=== PATIENT | female | born 1985 | race Caucasian/White ===

== ENCOUNTER 2019-11-04 05:36 | Observation (INO) | payer OTHER ==
[2019-10-30 09:18] LABS: BASOPHILS # (AUTO) 0.1 (0.0-0.1); BASOPHILS % 0.7 % (0.0-1.0); EOSINOPHILS # (AUTO) 0.2 (0.0-0.4); EOSINOPHILS % 1.6 % (0.0-6.0); HEMATOCRIT 38.2 % (34.2-44.1); LYMPHOCYTES # (AUTO) 2.7 (1.0-3.2); LYMPHOCYTES % 26.2 % (18.0-39.1); MEAN CORPUSCULAR HEMOGLOBIN 29.7 pg (28-32); MEAN CORPUSCULAR HGB CONC 31.4 g/dL (31-35); MEAN CORPUSCULAR VOLUME 94.6 fL (81-99); MONOCYTES # (AUTO) 0.6 (0.2-0.8); MONOCYTES % 6.2 % (4.4-11.3); NEUTROPHILS # (AUTO) 6.6 (2.1-6.9); NEUTROPHILS % 64.8 % (38.7-80.0); PLATELET COUNT 273 x10e3/uL (140-360); RED BLOOD COUNT 4.04 x10e6/uL (3.6-5.1); RED CELL DISTRIBUTION WIDTH 12.5 % (11.7-14.4)
[2019-10-30 09:28] LABS: PARTIAL THROMBOPLASTIN TIME 24.7 seconds (23.8-35.5)
[2019-10-30 09:32] LABS: CALCIUM 9.2 mg/dL (8.4-10.2); CREATININE, SERUM 1.34 mg/dL (0.57-1.11)
[2019-10-30 09:34] LABS: INR 0.83; PROTHROMBIN TIME 11.9 seconds (11.9-14.5)
--- NOTE | 2019-10-30 09:39 | Diagnostic Imaging Report ---
EXAMINATION: PA and lateral views of the chest. COMPARISON: None CLINICAL HISTORY: Preadmit DISCUSSION: Lines/tubes: None. Lungs: The lungs are well inflated and clear. There is no evidence of pneumonia or pulmonary edema. Pleura: There is no pleural effusion or pneumothorax. Heart and mediastinum: Cardiomediastinal silhouette is unremarkable. Pulmonary vasculature is normal. Bones and soft tissues: No acute bony abnormalities. IMPRESSION: No acute cardiopulmonary abnormalities. Signed by: Dr. Mian Machuca M.D. on 10/30/2019 9:35 AM
[~2019-11-04] VITALS: Ht 170.2 cm; Wt 83.5 kg
[~2019-11-04 05:36] MED LIST: IBUPROFEN200 MG PO
[2019-11-04] MEDS ORDERED: THROMBIN FOR SOLN 5,000 UNIT VIAL ONE (06:24)
[2019-11-04] MEDS ORDERED: BACITRACIN 50,000 UNIT VIAL ONE (06:24)
[2019-11-04] MEDS ORDERED: BUPIVACAINE 0.5%/EPI 30 ML SDV INJ ONE (06:24)
[2019-11-04] MEDS ORDERED: CEFAZOLIN SOD 1 GM/NS 50ML 100 ML IV ONE (06:25)
[2019-11-04] MEDS ORDERED: IBUPROFEN 800MG/ 200ML 200 ML IV ONE (07:38)
[2019-11-04] MEDS ORDERED: LIDOCAINE HCL (LTA) 4 ML SOLN ONE (07:38)
[2019-11-04] MEDS ORDERED: ACETAMINOPHEN 1000 MG/100 ML 100 ML IV ONE (07:38)
[2019-11-04] MEDS ORDERED: PROPOFOL IV EMULSION 10 MG/ML 20 ML VIAL ONE ×2 (08:19→15:40)
[2019-11-04] MEDS ORDERED: SUGAMMADEX SODIUM 200 MG/2 ML VIAL IV ONE (08:45)
[2019-11-04] MEDS ORDERED: CARISOPRODOL 350 MG TAB PO PRN (09:30)
[2019-11-04] MEDS ORDERED: MORPHINE SULFATE INJ 4 MG/ML INJ 1ML IM PRN (09:30)
[2019-11-04] MEDS ORDERED: CEPACOL SORE THROAT LOZENGES PO PRN (09:30)
[2019-11-04] MEDS ORDERED: MAGNESIUM/ALUMINUM/SIMETHICONE 30 ML UDC PO PRN (09:30)
[2019-11-04] MEDS ORDERED: ACETAMINOPHEN 325 MG TAB PO PRN (09:30)
[2019-11-04] MEDS ORDERED: PROMETHAZINE HCL (IM) 25 MG/ML VIAL IM PRN (09:30)
[2019-11-04] MEDS ORDERED: ONDANSETRON HCL INJ 2MG/ML 2ML 2 MG/ML VIAL IV PRN (09:30)
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
--- NOTE | 2019-11-04 10:15 | NUR ---
Pt received from PACU at this time. Pt is aox3 and able to verbalize needs. Complains of pain to lower back at site of surgery. Pt is able to ambulate without difficulties. Pt continues in IV fluids and tolerates well.
[2019-11-04 10:34] VITALS: BP 127/92
[2019-11-04] MEDS: HYDROMORPHONE 2MG/ML 2 MG/ML ML IV PRN ×2 (10:46→14:47)
[2019-11-04 10:55] VITALS: BP 127/92
[2019-11-04 11:41] VITALS: BP 127/92
[2019-11-04] MEDS: LACTATED RINGER'S 1,000 ML IV SCH ×2 (11:49→19:05)
--- NOTE | 2019-11-04 12:04 | Operative Report ---
DATE OF PROCEDURE: 11/04/2019 SURGEON: Ubaldo Sterling MD PREOPERATIVE DIAGNOSIS: Left L5-S1 disk herniation with radiculopathy, M51.17. POSTOPERATIVE DIAGNOSIS: Left L5-S1 disk herniation with radiculopathy, M51.17. PROCEDURE: Left L5-S1 laminotomy, medial facetectomy, and microsurgical diskectomy, 13626. ANESTHESIA: General. INDICATIONS: The patient is a 34-year-old woman who presents with an intractable left S1 radiculopathy due to an L5-S1 disk herniation and was taken to surgery for microsurgical diskectomy. PROCEDURE IN DETAIL: After induction of general anesthesia, the patient was placed on the operating table in prone position over Lucio frame. Lumbar region was prepped and draped in sterile fashion. A preoperative x-ray was obtained and a small midline incision was created. Lumbar fascia was opened to the left of midline and subperiosteal dissection was carried out to expose the underlying lamina. Additional x-rays were obtained until correct localization was confirmed at L5-S1. Retraction was maintained with Luis retractor. The operating microscope was brought in. A high-speed drill equipped with a man bur was used to drill the inferior aspect of the lamina of L5 and the medial rim of the L5-S1 facet joint and superior rim of the lamina of S1. The ligamentum flavum was resected. The lateral margin of the dural sac and the S1 nerve root were exposed. The nerve root was mobilized and carefully retracted medially. The epidural veins were bipolar coagulated and divided with micro scissors. The herniated disk material came into view. As expected, this was a combination of a chronic disk herniation at the level of the disk space and a more acute disk herniation just inferior to the disk space. The acute component of the disk herniation was retrieved and removed with a micro ball probe. The chronic subligamentous disk herniation was carefully resected with a combination of reverse angled curettes and up-angled pituitaries until the nerve root was completely decompressed. The loose contents of L5-S1 disk were evacuated with a micropituitary. Meticulous hemostasis was secured. The lumbar fascia was closed with 0 Vicryl suture. Subcutaneous layer was closed with 2-0 Vicryl sutures. The skin was closed with 3-0 Monocryl sutures in subcuticular fashion. Steri-Strips and dressing were applied. The patient was awakened, extubated, and taken to postanesthesia care unit in stable condition. No intraoperative complications were encountered. ESTIMATED BLOOD LOSS: 10 mL. Ubaldo Sterling MD PP/MEGA /[id number]
[2019-11-04] MEDS: CEFAZOLIN SOD 1 GM/NS 50ML 50 ML IV SCH ×2 (14:13→22:31)
[2019-11-04] MEDS ORDERED: DEXAMETHASONE SOD PHOS INJ 4 MG/ML VIAL ONE (15:40)
[2019-11-04] MEDS ORDERED: LIDOCAINE HCL 2% JELLY 5 ML TUBE ONE (15:40)
[2019-11-04] MEDS ORDERED: GLYCOPYRROLATE INJ 0.2 MG/ML VIAL ONE (15:40)
[2019-11-04] MEDS ORDERED: LIDOCAINE HCL 2% LOCAL INJ 5 ML SDV VIAL INJ ONE (15:40)
[2019-11-04] MEDS ORDERED: NEOSTIGMINE 1 MG/ML 10ML VIAL ONE (15:40)
[2019-11-04] MEDS ORDERED: ONDANSETRON HCL INJ 2MG/ML 2ML 2 MG/ML VIAL ONE (15:40)
[2019-11-04] MEDS ORDERED: ROCURONIUM BROMIDE 10 MG/ML 5ML VIAL IV ONE (15:40)
[2019-11-04 16:16] VITALS: BP 105/75
[2019-11-04] MEDS: OXYCODONE/ACETAMINOPHEN 5-325 1 EACH TABLET PO PRN (18:28)
[2019-11-04 20:00] VITALS: BP 99/63
[2019-11-04] MEDS ORDERED: ZOLPIDEM TARTRATE 5 MG TAB PO PRN (21:00)
[2019-11-04 21:58] VITALS: BP 99/63
[2019-11-05] VITALS: BP 107/71
[2019-11-05] MEDS: OXYCODONE/ACETAMINOPHEN 5-325 1 EACH TABLET PO PRN (00:36)
[2019-11-05 04:00] VITALS: BP 109/65
[2019-11-05] MEDS: CEFAZOLIN SOD 1 GM/NS 50ML 50 ML IV SCH (06:00)
[2019-11-05 08:00] VITALS: BP_SYST 113; BP_SYST 118; BP_DIAS 73; BP_DIAS 80
[2019-11-05] MEDS ORDERED: NORCO 7.5-3251 EACH PO (09:38)
--- NOTE | 2019-11-05 10:54 | NUR ---
Pt discharged home at this time. 0 s/s of acute distress noted at time of discharge. Pt was discharged with one prescription for pain medications. Dressing to lower back was dry and intact. Pt verbalized understanding of all discharge instructions and follow up appointments.
== END 2019-11-05 10:54 | disposition home or self-care (01) ==
LOC: OR 05:36 → PACU V 09:29 → MED/SURG 10:12
PROVIDERS: ADMIT Neurological Surgery; ATTEND Neurological Surgery
DX: M51.17 Intervertebral disc disorders with radiculopathy, lumbosacral region (principal); Z01.810 Encounter for preprocedural cardiovascular examination; Z01.812 Encounter for preprocedural laboratory examination; Z01.818 Encounter for other preprocedural examination; Z11.59 Encounter for screening for other viral diseases
CPT/HCPCS: 36415; 63047; 71046; 72020; 80048; 81025; 85025; 85610; 85730; 86850; 86900; 87635; 88304; 93005; G0378 ×2; J0131; J0690 ×2; J1100; J1170; J2001 ×2; J2405; J2704; J2710; J7121 ×2